=== PATIENT | male | born 1965 | race Caucasian/White ===

== ENCOUNTER 2017-02-22 11:49 | Emergency (ER) | payer MEDICAID ==
[~2017-02-22] VITALS: Ht 170.2 cm; Wt 69.9 kg
[2017-02-22] MEDS ORDERED: SODIUM CHLORIDE 0.9% 1,000 ML IV ONE (13:06)
[2017-02-22 13:23] LABS: HEMATOCRIT 43.4 % (39.2-51.8); WHITE BLOOD COUNT 15.5 x10^3/uL (3.4-10)
[2017-02-22] MEDS ORDERED: ONDANSETRON 2MG/ML, 2ML ONE (13:30)
[2017-02-22] MEDS ORDERED: SODIUM CHLORIDE 0.9% 1,000ML IVBOLUS ONE (13:30)
[2017-02-22] MEDS ORDERED: ONDANSETRON 2MG/ML, 2ML IVPush ONE (13:30)
[2017-02-22] MEDS ORDERED: HYDROmorphone 1 MG/ML, 1ML ONE ×2 (13:30→15:55)
[2017-02-22] MEDS ORDERED: SODIUM CHLORIDE FLUSH 10ML SYR IVF ONE (13:30)
[2017-02-22 13:36] LABS: BLOOD UREA NITROGEN 16 mg/dL (7-18)
[2017-02-22] MEDS: HYDROmorphone 1 MG/ML, 1ML IVPush PRN ×2 (13:37→16:12)
[2017-02-22 13:40] LABS: ASPARTATE AMINO TRANSFERASE 22 U/L (15-37)
[2017-02-22] MEDS ORDERED: CIPROFLOXACIN 500 MG TABLET PO ONE (15:00)
[2017-02-22] MEDS ORDERED: METRONIDAZOLE PMX 500MG/100ML 100 ML IVPB ONE (15:00)
[2017-02-22] MEDS ORDERED: METRONIDAZOLE PMX 500MG/100ML 100 ML ONE (15:19)
[2017-02-22] MEDS ORDERED: CIPROFLOXACIN 500 MG TABLET ONE (15:19)
[2017-02-22 16:48] VITALS: BP 137/80
== END 2017-02-22 16:50 | disposition home or self-care (01) ==
LOC: ED 14:54
DX: K57.32 Diverticulitis of large intestine without perforation or abscess without bleeding (principal); Z88.8 Allergy status to other drugs, medicaments and biological substances; F17.200 Nicotine dependence, unspecified, uncomplicated
CPT/HCPCS: 36415; 74177; 80053; 81003; 83605; 83690; 85025; 96361; 96365; 96375; 96376; 99285; J1170; J2405; J7030

== ENCOUNTER 2017-04-09 23:10 | Emergency (ER) | payer MEDICAID ==
[~2017-04-09] VITALS: Ht 170.2 cm; Wt 70.0 kg
[2017-04-09 23:13] VITALS: BP 138/77
== END 2017-04-09 23:43 | disposition home or self-care (01) ==
LOC: ED 23:37
DX: J06.9 Acute upper respiratory infection, unspecified (principal); G89.29 Other chronic pain; M54.9 Dorsalgia, unspecified; Z93.3 Colostomy status
CPT/HCPCS: 93005; 99283

== ENCOUNTER 2017-04-16 18:40 | Emergency (ER) | payer MEDICAID ==
[~2017-04-16] VITALS: Ht 170.2 cm; Wt 67.0 kg
[2017-04-16 18:53] VITALS: BP 153/102
== END 2017-04-16 20:49 | disposition home or self-care (01) ==
LOC: ED 20:20
DX: M25.511 Pain in right shoulder (principal); F17.210 Nicotine dependence, cigarettes, uncomplicated
CPT/HCPCS: 99284

== ENCOUNTER 2017-04-17 07:09 | Emergency (ER) | payer MEDICAID ==
[~2017-04-17] VITALS: Ht 170.2 cm; Wt 68.0 kg
[2017-04-17 07:11] VITALS: BP 156/88
== END 2017-04-17 07:50 | disposition home or self-care (01) ==
LOC: ED 07:24
DX: M25.511 Pain in right shoulder (principal); M19.90 Unspecified osteoarthritis, unspecified site; F17.210 Nicotine dependence, cigarettes, uncomplicated
CPT/HCPCS: 99282